=== PATIENT | female | born 1935 | race Caucasian/White ===

== ENCOUNTER 2023-11-15 16:09 | Emergency (ER) | payer MEDICARE, SELFPAY ==
[2023-11-15 16:16] VITALS: BP 165/76; PULSE 62; RESP 16; TEMP 36.6; O2SAT 96; BMI 19.5
--- NOTE | 2023-11-15 16:42 | CTR_ITS ---
PROCEDURE INFORMATION: Exam: CT Head Without Contrast Exam date and time: 11/15/2023 4:53 PM Age: 88 years old Clinical indication: Injury or trauma; Fall; Blunt trauma (contusions or hematomas); Additional info: Trauma/on assisted antioagulants TECHNIQUE: Imaging protocol: Computed tomography of the head without contrast. Radiation optimization: All CT scans at this facility use at least one of these dose optimization techniques: automated exposure control; mA and/or kV adjustment per patient size (includes targeted exams where dose is matched to clinical indication); or iterative reconstruction. COMPARISON: CT head wo con* [id number] 05/10/2023 4:03 PM RADIATION DOSE METRICS: Total DLP (mGy-cm): 982 FINDINGS: Brain: No hemorrhage. Chronic white matter and senescent changes. Cerebral ventricles: No ventriculomegaly. Paranasal sinuses: Visualized sinuses are grossly clear with minimal mucosal thickening and/or retention cyst formation. Mastoid air cells: No mastoid effusion. Bones/joints: No acute findings. Soft tissues: No acute findings. CT/CT head wo con* [id number] IMPRESSION: No acute intracranial abnormality.
--- NOTE | 2023-11-15 17:09 | ED_ITS ---
HPI - Fall 2 General: Chief Complaint: Fall Stated Complaint: hit head Time Seen by Provider: 11/15/23 16:32 Source: patient Mode of arrival: ambulatory History of Present Illness: 88-year-old female presents emergency ro om she stumbled at home fell and hit her forehead there is a 2 inch laceration at the lateral edge of the left supraorbital ridge. She denies loss consciousness she is awake alert able answer questions she denies any other injury. She is on Matt ALMARAZ complaint: fall Onset (ago): hour(s) (2-3) Fall from: standing Fall witnessed: yes, by family Place fall occurred: home Loss of consciousness: None Prolonged down time: no Context: tripped/slipped Location of injury: head Associated symptoms-after fall: Denies abdominal pain, chest pain, confusion, difficulty walking, headache(s), hematuria, lightheadedness, neck pain, numbness, short of breath, vertigo or weakness Review of Systems 2 Const: Denies: fever(s) or chills Card: Denies: chest pain or lightheadedness Resp: Denies: dyspnea GI: Denies: abdominal pain : Denies: dysuria, urinary frequency, urinary urgency or hematuria Musc: Denies: neck pain or back pain Skin/Breast: Denies: rash Neuro: Denies: headache(s), difficulty walking, vertigo or confusion PFSH ED 2 PFSH: Medical History Benign paroxysmal positional vertigo, bilateral Atrial fibrillation CAD (coronary artery disease) Vertigo HLD (hyperlipidemia) HTN (hypertension) Surgical History No significant past surgical history Social History Smoking and tobacco/nicotine status: never used tobacco/nicotine Alcohol intake: never Substance/Drug Use: never Physical Exam 2 Const: GENERAL APPEARANCE: cooperative and comfortable O RIENTATION/CONSCIOUSNESS: Yes awake, Yes oriented to person, Yes oriented to place and Yes oriented to time HENMT: COMMON NORMALS: normocephalic, hearing grossly normal bilaterally, external ears normal, EAC's normal, TM's normal bilaterally and Normal nasal mucous membranes and turbinates present HEAD & SCALP: normocephalic NOSE: Normal nasal mucous membranes and turbinates present EXTERNAL EAR: Yes external ears normal EXTERNAL AUDITORY CANAL: EAC's normal TYMPANIC MEMBRANE: TM's normal bilaterally OTHER: 5 cm L lateral supraorbital ridge lacera tion no active bleeding. Eye: COMMON NORMALS: Equal, round and reactive pupils present, EOMs intact bilaterally and conjunctivae normal CONJUNCTIVA: Yes conjunctivae normal P UPIL: Yes Equal, round and reactive pupils present Neck/C-Spine: COMMON NORMALS: full ROM, no lymphadenopathy, supple and no JVD OTHER: Full range of motion cervical spine cleared clinically no crepitus no significant pain Lymph: LYMPHATIC: no lymphadenopathy noted and no lymphedema noted Resp: COMMON NORMALS: normal respiratory effort, No retractions, No use of accessory muscles and clear to auscultation bilaterally AUSCULTATION: clear to auscultation bilaterally Cardio: COMMON NORMALS: no JVD, regular rate, regular rhythm and No murmurs present (Cardio) RATE: regular rate RHYTHM: regular rhythm GI: COMMON NORMALS: Soft to palpation and No hepatosplenomegaly present A USCULTATION: Yes normoactive bowel sounds PALPATION: Yes Soft to palpation, No Tenderness to palpation present (GI), No Guarding due to palpation present (GI) and Yes No hepatosplenomegaly present Extremity: COMMON NORMALS: normal to inspection, capillary refill normal, no clubbing, cyanosis or edema, no calf tenderness and no pedal edema Neuro: SENSORIUM/ORIENTATION: Yes oriented to person, Yes oriented to place and Yes oriented to time Skin: COMMON NORMALS: no rashes or lesions noted GENERAL SKIN EXAM: no rashes or lesions noted Procedures Laceration Laceration 1: Site: face Side (If applicable): left Size (cm): 5 Description: linear Depth: simple, single layer Local Anesthetic: lidocaine 1% and with epi Amount of anesthesia used (mL): 3 Pre-repair: irrigated extensively Skin layer closed with: nylon Size (cm): 5-0 Number of sutures: 4 Technique: simple, interrupted Course 2 Vital Signs: Vital signs: Vital Signs Temperature 97.9 F 11/15/23 16:16 Pulse Rate 62 11/15/23 16:16 Respiratory Rate 16 11/15/23 16:16 Blood Pressure 165/76 11/15/23 16:16 Pulse Oximetry 96 11/15/23 16:16 Oxygen Delivery Me thod Room Air 11/15/23 16:16 MDM - Fall Medical Decision Making CT of head is negative for acute intracranial bleed. Laceration was closed using simple interrupted sutures of 5-0 nylon for sutures. Wound care instructions given. Discharge patient home sutures to be removed in 5 to 7 days apply mupirocin twice daily. Recheck respiratory problems. Lab Data 11/15/23 17:[address] 11/15/23 16:42 IMPRESSION: No acute intracranial abnormality. Laboratory Results WBC 4.99 10^3/uL (3.29-11.43) 11/15/23 17:08 RBC 3.94 10^6/uL (3.85-5.65) 11/15/23 17:08 Hgb 12.10 g/dL (11.27-16.99) 11/15/23 17:08 Hct 37.0 % (36-47) 11/15/23 17:08 MCV 93.9 fl (85-98) 11/15/23 17:08 MCH 30.7 pg (27-33) 11/15/23 17:08 MCHC 32.7 g/dL (30-55) 11/15/23 17:08 RDW 14.0 % (12.1-15.1) 11/15/23 17:08 Plt Count 222 10^3/cmm (157-399) 11/15/23 17:08 MPV 9.9 fL (7.4-10.4) 11/15/23 17:08 Neut % (Auto) 69.0 % 11/15/23 17:08 Lymph % (Auto) 16.8 % 11/15/23 17:08 [place] % (Auto) 11.2 % 11/15/23 17:08 Eos % (Auto) 1.6 % 11/15/23 17:08 Baso % (Auto) 1.0 % 11/15/23 17:08 Neut # (Auto) 3.44 10^3/uL (1.8-7.7) 11/15/23 17:08 Lymph # (Auto) 0.8 10^3/uL (0.8-4.8) 11/15/23 17:08 [place] # (Auto) 0.6 10^3/uL (0.2-0.9) 11/15/23 17:08 Eos # (Auto) 0.1 10^3/uL (0.0-0.8) 11/15/23 17:08 Baso # (Auto) 0.1 10^3/uL (0.0-0.1) 11/15/23 17:08 Nucleated RBC % (auto) 0 % 11/15/23 17:08 Nucleated RBCs # 0.0 /100WBC 11/15/23 17:08 All radiology interpretation(s) finalized by discharge Discharge Plan Discharge Patient Disposition: Home Clinical Impression: Facial laceration Condition: Stable Prescriptions: New mupirocin 2 % ointment 1 applic topical BID Qty: 15 0RF No Action metoprolol tartrate 100 mg tablet 100 mg PO BID tramadol 50 mg Tablet 50 mg PO Q6H PRN (Reason: Pain) carbamazepine 200 mg tablet 200 mg PO BID nitroglycerin [Nitrostat] 0.4 mg Tablet, Sublingual 0.4 mg SUBLINGUAL Q5M PRN (Reason: Chest Pain) albuterol sulfate 90 mcg/actuation HFA aerosol inhaler 2 puff INHALATION Q6H PRN (Reason: Shortness Of Breath) sertraline 50 mg tablet 50 mg PO DAILY levothyroxine [Synthroid] 112 mcg tablet 112 mcg PO DAILY Eliquis 2.5 mg tablet 2.5 mg PO BID lisinopril 20 mg tablet 20 mg PO BID Qty: 60 0RF citalopram 10 mg tablet 10 mg PO DAILY Qty: 20 0RF meclizine 25 mg tablet 25 mg PO TID PRN (Reason: Dizziness) amlodipine 5 mg tablet 10 mg PO DAILY Qty: 60 0RF isosorbide mononitrate 30 mg tablet extended release 24 hr 15 mg PO DAILY Qty: 30 0RF Discharge Orders: Discharge ED (Routine); Ordered 11/15/23 Ordered By: Mauri Woods Referrals: Morgan Rodriguez DO [Primary Care Provider] - Discharge Diet: Usual diet Discharge Activity: Resume usual activity Patient Instructions: Opioid Safety, Pain Management Activity Restrictions/Additional Instructions: Thank you for choosing [facility] for your healthcare needs today. Please realize this is an emergency room and that we are providing you with a medical screening exam and this may not be complete and all inclusive of all the testing and or work up that you may need to determine your ailment or severity of your illness. It is very important that you follow up as instructed or that you return to the Emergency Department should you have concerns or if your condition changes or worsens in any way. You are seen today after a fall CT of your head was negative you had 4 sutures placed on laceration above your left eye these should be removed in 5 to 7 days. Apply topical antibiotic ointment to the wound twice daily until the sutures are removed Coding Level of Care Code ED [employer] for Jeronimo Pritchett
[2023-11-15 17:25] LABS: Basophils # 0.1 10^3/uL (0.0-0.1); Eosinophils # 0.1 10^3/uL (0.0-0.8); Eosinophils % 1.6 %; Lymphocytes # 0.8 10^3/uL (0.8-4.8); Lymphocytes % 16.8 %; Mean Corpuscular HGB Conc 32.7 g/dL (30-55); Mean Corpuscular Hemoglobin 30.7 pg (27-33); Mean Corpuscular Volume 93.9 fl (85-98); Mean Platelet Volume 9.9 fL (7.4-10.4); Monocytes # 0.6 10^3/uL (0.2-0.9); Monocytes % 11.2 %; Neutrophils # 3.44 10^3/uL (1.8-7.7); Nucleated Red Blood Cells % 0 %; Platelet Count 222 10^3/cmm (157-399); Red Blood Count 3.94 10^6/uL (3.85-5.65); White Blood Count 4.99 10^3/uL (3.29-11.43)
[2023-11-15] MEDS: lidocaine-epi 1% 20 mL INJ INJECTION (17:45)
== END 2023-11-15 17:48 | disposition home or self-care (01) ==
PROVIDERS: Emergency Provider Family Medicine; PCP Internal Medicine
DX: S01.112A Laceration without foreign body of left eyelid and periocular area, initial encounter (principal); I25.10 Atherosclerotic heart disease of native coronary artery without angina pectoris; E78.5 Hyperlipidemia, unspecified; I10 Essential (primary) hypertension; Z79.01 Long term (current) use of anticoagulants; W01.0XXA Fall on same level from slipping, tripping and stumbling without subsequent striking against object, initial encounter
CPT/HCPCS: 12013; 36415; 70450; 85025; 99284